=== PATIENT | male | born 1955 | race Caucasian/White ===

== ENCOUNTER 2017-11-29 08:00 | Inpatient (IN) | payer BC ==
[2017-12-27] MEDS ORDERED: Sodium Chloride 0.9% 2.5 ML Syringe FLUSH PRN (00:01)
[2017-12-27] MEDS ORDERED: ceFAZolin 1 GM in Premix Bag 1 BAG IV ONE (00:01)
[2017-12-27] MEDS ORDERED: ceFAZolin/Dextrose,Iso-Osmotic 2 GM/50 ML Duplex Bag IV ONE (09:10)
[2017-12-27] MEDS ORDERED: Midazolam 1 MG/ML 2 ML SDV ONE (09:11)
[2017-12-27] MEDS ORDERED: fentaNYL 100 MCG/2 ML SDV ONE (09:13)
[2017-12-27] MEDS ORDERED: Propofol 200 MG/20 ML SDV ONE ×2 (09:13→10:48)
[2017-12-27] MEDS ORDERED: Lidocaine 2% 5 ML SDV ONE (09:13)
[2017-12-27] MEDS ORDERED: Ondansetron 4 MG/2 ML SDV ONE (09:14)
[2017-12-27] MEDS: Lactated Ringers 1,000 ML IV SCH ×2 (09:37→17:54)
--- NOTE | 2017-12-27 09:39 | PCM.PREANE ---
Preanesthetic Assessment - Anesthesia/Transfusion/Family Hx Anesthesia History: Prior Anesthesia Without Reaction Family History of Anesthesia Reaction: No Transfusion History: No Prior Transfusion(s) - Review of Systems General: No Symptoms Pulmonary: No Symptoms Cardiovascular: No Symptoms Gastrointestinal: No Symptoms Neurological: No Symptoms Other: Reports: None - Physical Assessment NPO Status Date: 12/26/17 Height: 1.8 m Weight: 91.172 kg ASA Class: 1 Mental Status: Alert & Oriented x3 Airway Class: Mallampati = 1 Dentition: Reports: Normal Dentition ROM/Head Extension: Full Lungs: Clear to Auscultation, Normal Respiratory Effort Cardiovascular: Regular Rate, Regular Rhythm - Allergies Allergies/Adverse Reactions: Allergies Allergy/AdvReac Type Severity Reaction Status Date / Time No Known Allergies Allergy Verified 12/22/17 10:34 - Anesthesia Plan Pre-Op Medication Ordered: None - Acknowledgements Anesthesia Type Planned: General Anesthesia Pt an Appropriate Candidate for the Planned Anesthesia: Yes Alternatives and Risks of Anesthesia Discussed w Pt/Guardian: Yes Pt/Guardian Understands and Agrees with Anesthesia Plan: Yes Additional Comments: Pt prefers GA to spinal. PreAnesthesia Questionnaire Other HEENT History: wears glasses Respiratory History: Reports: Sleep Apnea Other Respiratory History: uses CPAP Genitourinary History: Reports: BPH Musculoskeletal History: Reports: Fracture Other Musculoskeletal History: hx of fx ankle (no hardware) - Past Surgical History HEENT Surgical History: Reports: Naso-Sinus Surgery GI Surgical History: Reports: Hernia, Inguinal - SUBSTANCE USE Smoking Status *Q: Former Smoker Tobacco Use Within Last Twelve Months: No Days Per Week of Alcohol Use: 7 Number of Drinks Per Day: 3 Total Drinks Per Week: 21 Recreational Drug Use History: No - HOME MEDS Home Medications: Home Meds . [No Known Home Meds] 12/22/17 [History] - CURRENT (IN HOUSE) MEDS Current Meds: Current Medications Lactated Ringer's (Ringers, Lactated) 1,000 mls @ 100 mls/hr IV ASDIRECTED [facility] Last Admin: 12/27/17 09:37 Dose: 100 mls/hr Sodium Chloride (Saline Flush) 2.5 ml FLUSH ASDIRECTED PRN PRN Reason: Keep Vein Open Discontinued Medications Cefazolin Sodium/Dextrose (Ancef) Confirm Administered Dose 2 gm IV .STK-MED ONE Stop: 12/27/17 09:11 Fentanyl (Sublimaze) Confirm Administered Dose 100 mcg .ROUTE .STK-MED ONE Stop: 12/27/17 09:14 Cefazolin Sodium/Dextrose 1 gm (/ Premix) 50 mls @ 100 mls/hr IV ONETIME ONE Stop: 12/27/17 00:30 Lidocaine (Xylocaine-Mpf 2%) Confirm Administered Dose 5 ml .ROUTE .STK-MED ONE Stop: 12/27/17 09:14 Midazolam HCl (Versed 1 Mg/Ml) Confirm Administered Dose 2 mg .ROUTE .STK-MED ONE Stop: 12/27/17 09:12 Ondansetron HCl (Zofran) Confirm Administered Dose 4 mg .ROUTE .STK-MED ONE Stop: 12/27/17 09:15 Propofol (Diprivan 20 Ml) Confirm Administered Dose 200 mg .ROUTE .STK-MED ONE Stop: 12/27/17 09:14
[2017-12-27] MEDS ORDERED: diphenhydrAMINE 50 MG/ML SDV ONE (10:57)
[2017-12-27] MEDS ORDERED: D5 1/2 NS w/ 20 mEq/L KCl 1,000 ML IV SCH (12:15)
--- NOTE | 2017-12-27 12:44 | PCM.POSTAN ---
POST ANESTHESIA ASSESSMENT - MENTAL STATUS Mental Status: Alert, Oriented - RESPIRATORY Respiratory Status: Respiratory Rate WNL, Airway Patent, O2 Saturation Stable - CARDIOVASCULAR CV Status: Pulse Rate WNL, Blood Pressure Stable - GASTROINTESTINAL GI Status: No Symptoms - POST OP HYDRATION Hydration Status: Adequate & Stable
[2017-12-27] MEDS: Bacitracin Oint 28.35 GM Tube TOP SCH ×2 (13:15→22:00)
--- NOTE | 2017-12-27 14:02 | PCM48HPAN ---
Post Anesthesia Note - EVALUATION WITHIN 48HRS OF ANESTHETIC Vital Signs in Normal Range: Yes Patient Participated in Evaluation: Yes Respiratory Function Stable: Yes Airway Patent: Yes Cardiovascular Function Stable: Yes Hydration Status Stable: Yes Pain Control Satisfactory: Yes Nausea and Vomiting Control Satisfactory: Yes Mental Status Recovered: Yes Resp Rate: 14
[2017-12-27] MEDS: Nitrofurantoin Monohydrate/Macrocrystalline 100 MG Cap PO SCH ×2 (14:38→21:59)
--- NOTE | 2017-12-27 14:51 | OR ---
SURGEON: Anton Cabrera M.D. DATE OF PROCEDURE: 12/27/2017 PREOPERATIVE DIAGNOSIS: Benign prostatic hyperplasia with obstructive symptoms. POSTOPERATIVE DIAGNOSIS: Benign prostatic hyperplasia with obstructive symptoms. OPERATION: TURP. DESCRIPTION OF PROCEDURE: The patient was given spinal anesthesia, placed in dorsal lithotomy position, prepped and draped in sterile drapes. The 28 and 30 stents were passed through the ventral side of the urethral meatus, which had to be cut to allow the 28 resectoscope to be introduced. The resection was then started in the usual manner going on from the floor of the prostatic urethra laterally and anteriorly. At the end of the resection all prostatic chips were removed, both ureteral orifices were intact. External sphincter was intact. A 22 three-way Osorio catheter with 60 mL in the balloon was left in the bladder connected to the TUR drip. The patient tolerated the procedure well. Estimated blood loss about 200 mL. He was moved to recovery room in good condition. RIYA / ASHLY /[id number]
[2017-12-27] MEDS: Docusate Sodium 100 MG Cap PO SCH (21:59)
[2017-12-28] MEDS: Belladonna Alkaloids/Opium 16.2-30 MG Supp RECTAL PRN ×2 (02:44→09:13)
[2017-12-28] MEDS: Lactated Ringers 1,000 ML IV SCH (04:11)
[2017-12-28] MEDS: Bacitracin Oint 28.35 GM Tube TOP SCH ×2 (05:59→14:43)
[2017-12-28] MEDS: Nitrofurantoin Monohydrate/Macrocrystalline 100 MG Cap PO SCH (09:13)
[2017-12-28] MEDS: Docusate Sodium 100 MG Cap PO SCH (09:13)
[2017-12-28] MEDS: Acetaminophen 325 MG Tab PO PRN ×2 (12:03→17:36)
--- NOTE | 2017-12-29 03:37 | DISCH ---
DATE OF DISCHARGE: 12/28/2017 PRIMARY CARE PHYSICIAN: None PCP The patient is a 62-year-old. He had a TURP done yesterday for obstructive prostate. His lab work remained stable. His postoperative course was uneventful. He was discharged on the 1st postop day. At the time of discharge, he is passing his urine without difficulty and the urine is clear. He is sent home on Macrobid 100 mg twice a day for seven days. He is to come back and see me as needed. RIYA LIMON /[id number]
== END 2017-12-28 19:05 | disposition home or self-care (01) | DRG 482 ==
LOC: MW.MS 12-27 08:42
PROVIDERS: ADMIT Urology; ATTEND Urology
PROC: 0VT08ZZ Resection of Prostate, Via Natural or Artificial Opening Endoscopic (ICD-10-PCS; principal; 2017-12-27)
DX: N40.1 Benign prostatic hyperplasia with lower urinary tract symptoms (principal); N13.8 Other obstructive and reflux uropathy
CPT/HCPCS: 36415; 80051; 84132; 84295; 85018; 85025; 88305; A9270-GY; J0690; J1200; J2250; J2405; J2704; J3010; J7120